=== PATIENT | female | born 1990 | race Caucasian/White ===

== ENCOUNTER → 2019-04-05 | Outpatient (CLI) | payer BC | END | disposition home or self-care (01) | LOC: LABWHC1 10:18 | PROVIDERS: ATTEND Obstetrics & Gynecology | DX: Z36.9 Encounter for antenatal screening, unspecified (principal) | CPT/HCPCS: 36415; 82950 ==

== ENCOUNTER 2019-07-03 10:10 | Outpatient (CLI) | payer BC ==
[2019-07-03 12:52] VITALS: BP 120/65; PULSE 99; RESP 16; TEMP 98.4
--- NOTE | 2019-08-06 08:15 | P.MSEPDOC ---
Presenting Problems - Arrival Data Date of Arrival on Unit: 07/03/19 Time of Arrival on Unit: 10:10 Mode of Transport: Ambulatory - Complaint OB-Reason for Admission/Chief Complaint: Possible Onset of Labor, Vaginal Bleeding Medical History - Information : 3 Para: 1 Term: 1 : 0 Abortions: Spontaneous or Elective: 1 Number of Living Children: 1 - Gestational Age Gestational Age by NUNO (wks/days): 38 Weeks and 6 Days Review of Systems - Review of Systems Constitutional: No problems Breast: No problems ENT: No problems Cardiovascular: No problems Respiratory: No problems Gastrointestinal: No problems Genitourinary: No problems Musculoskeletal: No problems Neurological: No problems Skin: No problems Vital Signs - Temperature Temperature: 98.4 F Temperature Source: Oral - Pulse Right Supine Brachial Pulse Rate: 99 Pulse Assessment Method: Automatic Cuff - Respirations Respiratory Rate: 16 Oxygen Delivery Method: Room Air O2 Sat by Pulse Oximetry: 98 - Blood Pressure Right Arm Supine Blood Pressure: 120/65 Blood Pressure Mean: 83 Blood Pressure Source: Automatic Cuff Medical Screen Scoring (Pre) - Cervical Exam Dilation: 1-3 cm = 1 Membranes: Intact - Uterine Contractions Frequency: > or = 36 weeks =2 Duration: > 40 seconds = 2 - Maternal Vital Signs Maternal Temperature: N/A Signs of Preeclampsia: N/A Maternal Respirations: N/A - Maternal Trauma Maternal Trauma: N/A - Assessment - Baby A Baseline FHR: 135 Heart Rate - NICHD Category: Category I (Normal) = 0 NST: Reactive - Total Score - Baby A Total Score - Baby A: 5 - Total Score - Baby B Total Score - Baby B: 5 - Total Score - Baby C Total Score - Baby C: 5 - Level of Risk - Baby A Level of Risk - Baby A: Low (0-5) - Level of Risk - Baby B Level of Risk - Baby B: Low (0-5) - Level of Risk - Baby C Level of Risk - Baby C: Low (0-5) Physician Notification (Pre) - Physician Notified Physician Notified Date: 07/03/19 Physician Notified Time: 11:57 Physician/Practitioner Notifed:: Dr Gibbs Spoke With: Dr Gibbs New Order Received: Yes - Notification Comment Comment: May discharge to home, has appt tomorrow, come back to hospital for bright red bleeding same as period or contractions stronger, regular and painful Disposition - Disposition OB Disposition: Discharge to home Discharge Date: 07/03/19 Discharge Time: 12:05 I agree with the RN Medical Screening Exam: Yes Risk & Benefit of care provided described in d/c instruction: Yes Diagnosis: SPOTTING COMPLICATING , THIRD TRIMESTER
== END 2019-07-03 12:05 | disposition home or self-care (01) ==
LOC: FBPOP 10:10
PROVIDERS: ATTEND Obstetrics & Gynecology
DX: O26.853 Spotting complicating pregnancy, third trimester (principal); Z3A.38 38 weeks gestation of pregnancy
CPT/HCPCS: 59025; 99215

== ENCOUNTER 2019-07-09 21:05 | Inpatient (IN) | payer BC ==
[2019-07-09] MEDS ORDERED: OXYTOCIN 10 UNIT/ML 1 ML VIAL IM PRN (21:37)
[2019-07-09] MEDS ORDERED: LIDOCAINE 0.5% (PF) 5 MG/ML (50 ML SDV) SQ PRN (21:37)
[2019-07-09] MEDS ORDERED: METHYLERGONOVINE 0.2 MG/ML 1 ML AMP IM PRN (21:37)
[2019-07-09] MEDS ORDERED: CARBOPROST TROMETHAMINE 250 MCG/ML 1 ML AMP IM PRN (21:37)
[2019-07-09] MEDS ORDERED: TERBUTALINE 1 MG/ML VIAL SQ PRN (21:37)
[2019-07-09] MEDS ORDERED: LACTATED RINGERS 1,000 ML IV SCH (21:45)
[2019-07-09 21:51] VITALS: BMI 29.7
[2019-07-09] MEDS: LACTATED RINGERS 1,000 ML IV SCH (22:12)
[2019-07-09 22:36] LABS: Basophils # (A) 0.1 k/uL (0-0.2); Basophils % (A) 1 %; Eosinophils # (A) 0.3 k/uL (0-0.7); Eosinophils % (A) 2 %; HCT 30.6 % (34.0-46.0); HGB 10.7 gm/dL (11.4-16.0); Lymphocytes # (A) 1.7 k/uL (1.0-4.8); Lymphocytes % (A) 15 %; MCH 29.2 pg (25.0-35.0); MCHC 34.9 g/dL (31.0-37.0); MCV 83.6 fL (80.0-100.0); Mean Platelet Volume 7.4; Monocytes # (A) 0.6 k/uL (0-1.0); Monocytes % (A) 6 %; Neutrophils % (A) 74 %; Platelet Count 254 k/uL (150-450); RBC 3.66 m/uL (3.80-5.40); RDW 14.5 % (11.5-15.5); WBC 10.8 k/uL (3.8-10.6)
[2019-07-10] MEDS ORDERED: ZOLPIDEM 5 MG TAB PO PRN (06:03)
[2019-07-10] MEDS ORDERED: LANOLIN CREAM 5 GM TUBE TOPICAL PRN (06:03)
[2019-07-10] MEDS ORDERED: HYDROcodone/APAP 7.5-325MG 1 EACH TAB PO PRN (06:03)
[2019-07-10] MEDS ORDERED: HYDROCORTISONE 2.5% RECTAL CREAM 30 GM TUBE RECTAL PRN (06:03)
[2019-07-10] MEDS ORDERED: diphenhydrAMINE 50 MG CAP PO PRN (06:03)
[2019-07-10] MEDS ORDERED: ACETAMINOPHEN TAB 325 MG TAB PO PRN (06:03)
[2019-07-10] MEDS ORDERED: HYDROcodone/APAP 5-325MG 1 EACH TAB PO PRN (06:03)
[2019-07-10] MEDS ORDERED: BENZOCAINE/MENTHOL SPRAY 1 GM/SPRAY AEROSOL TOPICAL PRN (06:03)
[2019-07-10] MEDS ORDERED: SIMETHICONE 80 MG CHEWABLE PO PRN (06:03)
[2019-07-10] MEDS ORDERED: WITCH HAZEL 1 EACH MED..PAD TOPICAL PRN (06:03)
[2019-07-10] MEDS ORDERED: diphenhydrAMINE 50 MG/ML 1 ML VIAL IVP PRN ×2 (06:03)
[2019-07-10] MEDS ORDERED: diphenhydrAMINE 25 MG CAP PO PRN (06:03)
--- NOTE | 2019-07-10 06:09 | P.HPOB ---
History of Present Illness H&P Date: 07/10/19 Chief Complaint: 39-6/7 weeks, spontaneous rupture of membranes The patient is a 29-year-old 3 para 1011 admitted at 39-6/7 weeks as established by last menstrual period and confirmed by second trimester ultrasound. She is admitted with documented spontaneous rupture of membranes for clear fluid. Her has been entirely uncomplicated and group B strep status is negative. On labor and delivery, all signs are reassuring. Obstetrical history: 3 para 1011 with 1 previous term vaginal delivery without complications. She additionally had one early miscarriage not requiring D&C. Current statistics are listed in history of present illness. EDC of 07/11/2019 was established by last menstrual period and confirmed by 19 week ultrasound. Laboratory workup demonstrates a blood type of A+ with a negative antibody screen. Rubella status is immune. Remainder of the laboratory workup was within normal limits. One hour Glucola was normal and group B strep status is negative. Gynecologic history: Unremarkable with no history of any infections to include STDs. Review of Systems Review of systems is confined to history of present illness. Past Medical History Past Medical History: No Reported History History of Any Multi-Drug Resistant Organisms: None Reported Past Surgical History: No Surgical Hx Reported Past Anesthesia/Blood Transfusion Reactions: No Reported Reaction Past Psychological History: No Psychological Hx Reported Smoking Status: Former smoker Past Drug Use History: Marijuana - Past Family History Mother Additional Family Medical History / Comment(s): Grandmother heart disease Medications and Allergies Home Medications Medication Instructions Recorded Confirmed Type Pnv,Calcium 72/Iron/Folic Acid 1 each PO DAILY 07/03/19 07/09/19 History [ Plus Tablet] Allergies Allergy/AdvReac Type Severity Reaction Status Date / Time Penicillins Allergy Swelling Verified 07/09/19 21:11 Exam Vital Signs Temp Pulse Resp BP 07/09/19 21:35 97 F L 103 H 18 124/75 07/09/19 21:13 97.0 F L 103 H 18 124/75 Intake and Output 07/09/19 07/09/19 07/10/19 14:59 22:59 06:59 Other: # Voids 1 Weight 86.183 kg In general, this is a well-developed, well-nourished female in no acute distress. Her heart has a regular rhythm and rate without murmur. Her lungs are clear to auscultation bilaterally in all [place]. Her abdomen is gravid, nondistended, has normal active bowel sounds, is soft, nontender, and without any palpable masses aside from uterine fundus. Her extremities without any cyanosis, clubbing, or edema and are nontender to palpation bilaterally. Digital cervical examination at admission demonstrates her cervix to be 3+ centimeters dilated, 50% effaced, with the vertex in presentation at -2-3 station. Spontaneous rupture of membranes is documented. Results Result Diagrams: 07/09/19 22:07 Abnormal Lab Results - Last 24 Hours (Table) 07/09/19 Range/Units 22:07 WBC 10.8 H (3.8-10.6) k/uL RBC 3.66 L (3.80-5.40) m/uL Hgb 10.7 L (11.4-16.0) gm/dL Hct 30.6 L (34.0-46.0) % Neutrophils # 8.0 H (1.3-7.7) k/uL Assessment and Plan (1) Spontaneous rupture of amniotic membranes Current Visit: Yes Status: Acute Code(s): [id number] - SNOMED Code(s): 032144124 (2) Active labor at term Current Visit: Yes Status: Acute Code(s): BCT2612 - SNOMED Code(s): 35 133022 Plan: The patient is admitted for active management of labor. She will have close maternal and surveillance and expectant management will be practiced. She is a good candidate for either IV or epidural analgesia, whichever she may choose. Should she made no significant progress over the next several hours after admission, she will have Pitocin augmentation started.
--- NOTE | 2019-07-10 06:12 | P.PROBDLV ---
Vaginal Delivery Note - . Vaginal Delivery Note: The patient is a 29-year-old 3 para 1011 admitted at 39-6/7 weeks by good dating parameters. She is admitted in early labor with documented spontaneous rupture of membranes for clear fluid. Her has been uncomplicated and group B strep status is negative. On labor and delivery, she began to make progress on her own and had an epidural catheter placed for analgesia around the onset of the active phase of labor. She did not require any Pitocin augmentation. She made steady progress through the active phase of labor to complete and then pushed over the course of approximately 20 minutes to a normal spontaneous vaginal delivery of a viable 8 pound 15.6 ounce baby girl with Apgars of 8 at 1 minute and 9 at 5 minutes delivered in the right occiput anterior position. The placenta was delivered spontaneously, intact, and grossly normal with a grossly normal, centrally inserted three-vessel cord. There was a small first-degree midline perineal skin split which was repaired with a single [id number] stitch of 3-0 chromic catgut without difficulty. Estimated blood loss for the case was approximately 250 mL. There were no complications. All sponge, instrument, and needle counts were correct. Both mother and infant are resting comfortably in recovery.
[2019-07-10] MEDS ORDERED: OXYTOCIN 20 UNITS/1000 ML NS 1,000 ML IV SCH (06:15)
[2019-07-10] MEDS: IBUPROFEN 600 MG TAB PO PRN ×3 (06:30→22:04)
[2019-07-10] MEDS: SENNOSIDES-DOCUSATE SODIUM 1 EACH TAB PO SCH ×2 (09:14→22:04)
[2019-07-10] MEDS: OXYTOCIN 30 UNITS/500 ML NS 30 UNIT in SALINE 1 500ML.BAG IV SCH (21:40)
[2019-07-10] MEDS: LACTATED RINGERS 1,000 ML IV SCH (21:41)
[2019-07-10] MEDS ORDERED: SODIUM CHLORIDE 0.9% 100 ML BAG ONE (23:58)
[2019-07-10] MEDS ORDERED: fentaNYL (PF) 50 MCG/ML 5 ML AMP ONE (23:58)
[2019-07-10] MEDS ORDERED: ROPIVACAINE 5MG/ML 20ML VIAL ONE (23:58)
[2019-07-11] MEDS: LACTATED RINGERS 1,000 ML IV SCH (01:01)
[2019-07-11] MEDS: OXYTOCIN 30 UNITS/500 ML NS 30 UNIT in SALINE 1 500ML.BAG IV SCH (01:01)
--- NOTE | 2019-07-11 06:20 | P.DS ---
Providers Date of admission: 07/09/19 21:34 Expected date of discharge: 07/11/19 Attending physician: Adelina Gibbs Primary care physician: Stated None - Discharge Diagnosis(es) (1) Active labor at term Current Visit: Yes Status: Acute (2) Normal spontaneous vaginal delivery Current Visit: Yes Status: Acute (3) Perineal laceration during delivery Current Visit: Yes Status: Acute (4) Spontaneous rupture of amniotic membranes Current Visit: Yes Status: Acute Hospital Course: 29 year olg G2 now P2 woman who presented at 39 6/7 weeks with spontaneous rupture of membranes and active labor. Recieved an epidural. Had reassuring FHTs. Went on to deliver a female weighing 8 lb 15 oz over 1st degree laceration. APGARS 9/9. Post course unremarkable. Breast feeding, minimal lochia, stable vital signs. Discharged home on PPD 1. Patient Condition at Discharge: Good Plan - Discharge Summary New Discharge Prescriptions: No Action Pnv,Calcium 72/Iron/Folic Acid [ Plus Tablet] 1 each PO DAILY Discharge Medication List Pnv,Calcium 72/Iron/Folic Acid [ Plus Tablet] 1 each PO DAILY 07/03/19 [History] Follow up Appointment(s)/Referral(s): Adelina Gibbs MD [STAFF PHYSICIAN] - 6 Weeks Discharge Disposition: HOME SELF-CARE
[2019-07-11] MEDS: IBUPROFEN 600 MG TAB PO PRN ×3 (08:01→23:38)
[2019-07-11] MEDS: SENNOSIDES-DOCUSATE SODIUM 1 EACH TAB PO SCH ×2 (08:01→21:21)
[2019-07-12] MEDS: SENNOSIDES-DOCUSATE SODIUM 1 EACH TAB PO SCH (08:11)
[2019-07-12 08:14] VITALS: BP 109/58; PULSE 77; RESP 16; TEMP 97.8
== END 2019-07-12 15:43 | disposition home or self-care (01) | DRG 807 ==
LOC: FBPOP 21:05 → 4FBP 21:34
PROVIDERS: ADMIT Obstetrics & Gynecology; ATTEND Obstetrics & Gynecology
PROC: 10E0XZZ Delivery of Products of Conception, External Approach (ICD-10-PCS; principal; 2019-07-10)
PROC: 0HQ9XZZ Repair Perineum Skin, External Approach (ICD-10-PCS; 2019-07-10)
PROC: 00HU33Z Insertion of Infusion Device into Spinal Canal, Percutaneous Approach (ICD-10-PCS; 2019-07-10)
PROC: 3E0R3BZ Introduction of Anesthetic Agent into Spinal Canal, Percutaneous Approach (ICD-10-PCS; 2019-07-10)
DX: O70.0 First degree perineal laceration during delivery (principal); Z37.0 Single live birth; Z3A.39 39 weeks gestation of pregnancy; Z87.891 Personal history of nicotine dependence; Z88.0 Allergy status to penicillin; Z82.49 Family history of ischemic heart disease and other diseases of the circulatory system
CPT/HCPCS: 59025; 84112; 85025; 86850; 86900; 86901; 99213